=== PATIENT | female | born 1935 | race Caucasian/White ===

== ENCOUNTER 2016-11-24 10:30 | Day surgery (SDC) | payer MEDICARE ==
[~2016-11-24] VITALS: Ht 167.6 cm; Wt 65.0 kg
[~2016-11-24 10:30] MED LIST: 0.9% Sodium Chloride 1,000 ML IV PRN; Sodium Chloride LOK Flush 10 mL Syringe IV PRN; fentaNYL-PF 50 mCg/mL 2 mL Inj IVPUSH PRN
[2016-11-24 11:24] VITALS: BP 139/73; PULSE 73; RESP 16; O2SAT 97
[2016-11-24] MEDS ORDERED: GABA-500 PO (11:26)
[2016-11-24] MEDS ORDERED: SIMV10TA4 PO (11:26)
[2016-11-24] MEDS ORDERED: ATEN50TA PO (11:26)
[2016-11-24] MEDS ORDERED: ASPI-973 PO (11:26)
--- NOTE | 2016-11-24 12:29 | PCM.ENDEGD ---
EGD Date of Service: Nov 24, 2016 Physician Al Rain MD Pre Procedure Diagnosis: Reflux Post Procedure Dx & Findings: Diffuse gastritis bilaterally the stomach benign-appearing duodenal narrowing Procedure Esophagogastroduodenoscopy PROCEDURE IN DETAIL: After proper sedation, Olympus video endoscope was inserted into patient's mouth and esophagus was successfully intubated. Scope introduced esophagus. Esophagus showed normal shiny whitish mucosa consistent with squamous cell component. Z line was intact at 39 cm from the incisors. Scope further advanced to the stomach. Stomach showed atrophy redness erosions and bilious material consistent with chemical gastritis. Several biopsies obtained. Cardia fundus body antrum pylorus were all visualized. Retroflexion was done. Stomach was easily inflated and deflatable using air. Scope further events to the proximal duodenum. There was a benign appearing stricture with ulceration between the first and the second pass of the duodenum. Scope did not easily popped in. I did not try to push the scope and due to the ulcer. Biopsy obtained. Impression Chemical gastropathy status post biopsy Benign appearing duodenal narrowing with small ulcer between first and second pass. Biopsies obtained. Recommendation Prilosec 20 mg twice a day Avoid NSAIDs Calculate the risks and benefits for continuing the baby aspirin for cardiac stroke protection. Follow up in GI clinic Soft diet and low residual diet Presedation Assessment Risks and Benefits Informed consent was obtained from the patient after all risks and benefits including but not limited to drug reaction, infection, pain, bleeding, perforation, as well as alternatives were discussed. Patient monitoring Continuous pulse oximetry, cardiac monitoring, blood pressure monitoring, IV access, and oxygen at 2L per nasal cannula. Periprocedural Fentanyl: Fentanyl 75mcg Incrementally Midazolam: Midazolam 3mg Incrementally Complications There were no periprocedural complications identified. Post Procedure Plan Post Procedure Recommendations 1. Restrict activities today. 2. Resume normal activities in the morning. 3. Resume medications. 4. GERD behavioral modification: - Avoid fatty, acidic, spicy, large meals - Do not lie down after meals - Do not eat or drink anything for at least 2 1/2 hours before going to bed at night - Discontinue tobacco and alcohol - Decrease or avoid caffeine - Avoid chocolate and mints - Decrease weight - Avoid aspirin and non steroidal anti-inflammatory agents (NSAID) such as Aleve, Advil, Mobic, Naproxen, Ibuprofen, etc 5. Add proton pump inhibitor. Take 30 minutes before 1st meal of the day. 6. Patient informed of normal post procedure side effects as bloating, drowsiness, blood streaking in the stool 7. If gastric biopsy reveal H.pylori, continue with appropriate treatment 8. If small bowel biopsy reveals celiac, continue with appropriate treatment 9. Please don't hesitate to call me with any questions Al Rain MD Nov 24, 2016 12:29
--- NOTE | 2016-11-24 13:14 | PCM.ENDCOL ---
Colonoscopy Date of Service: Nov 24, 2016 Physician Al Rain MD Pre Procedure Diagnosis: Personal history of colon polyps Post Procedure Dx & Findings: Polyp hemorrhoids diverticuli Procedure Colonoscopy Prep adequate Withdrawal time 20 minutes After unremarkable rectal examination the Olympus video colonoscope was inserted patient's anal canal and was advanced to cecum. Landmarks were identified including the ileocecal valve and appendiceal orifice. Scope was withdrawn systematically. Visualized colonic mucosa showed healthy shiny mucosa with normal healthy-appearing vasculature. She had a very redundant colon. Once in the cecum, she bears down and the scope pops right out. Then we went back and there again and on the second time, we were able to clean the cecum. When we tried to locate the polyp she again bear down and the scope popped out. This time she had a vasovagal episode. Because of this, we did not attempt to reintubate the cecum. In the cecum, there were two 1 mm polyps next to each other. In the sigmoid colon a few diverticuli. In the rectum retroflexion was done which showed hemorrhoids. Anal canal was inspected carefully on the way out and hemorrhoids noted. Impression Polyps 2 in the cecum unable to really removed Diverticuli Hemorrhoids Recommendation Follow up in GI clinic in 1 month. Presedation Assessment Risks and Benefits Informed consent was obtained from the patient after all risks and benefits including but not limited to drug reaction, infection, pain, bleeding, perforation, as well as alternatives were discussed. Patient monitoring Continuous pulse oximetry, cardiac monitoring, blood pressure monitoring, IV access, and oxygen at 2L per nasal cannula. Periprocedural Fentanyl: Fentanyl 50mcg Incrementally Midazolam: Midazolam 3mg Incrementally Complications There were no periprocedural complications identified. Post Procedure Plan Post Procedure Recommendations 1. Restrict activities today. 2. Resume normal activities in the morning. 3. Resume medications. 4. Patient informed of normal post procedure side effects as bloating, drowsiness, blood streaking in the stool. 5. average risk CRCS. If colon polyps come back as: -Hyperplastic- can repeat colonoscopy in 10 years -Tubular adenoma- repeat colonoscopy in 5 years -Tubulovillous/villous adenoma- repeat colonoscopy in 3 years -If any dysplasia- return to clinic as soon as possible 6. Please don't hesitate to call me with any questions. Al Rain MD Nov 24, 2016 13:14
[2016-11-24 13:18] VITALS: BP 127/69; PULSE 64; RESP 16; O2SAT 96
[2016-11-24 13:37] VITALS: BP 130/59; PULSE 60; RESP 16; O2SAT 97
[2016-11-24 13:46] VITALS: BP 139/68; PULSE 57; RESP 16; O2SAT 97
--- NOTE | 2016-11-25 14:53 | PATH ---
SURGICAL PATHOLOGY Attending Physician:Al Rain M.D. CASE STATUS: Signed Out PATIENT NAME: GABY TUTTLE PID: [id number] : 1935 DATE COLLECTED:11/24/2016 22:15 SPECIMEN: 1: Duodenum, Biopsy 2: Gastric, Biopsy CLINICAL HISTORY: GERD,PHX COLON POLYPS 1). DUODENUM ULCER BIOPSY 2). GASTRIC BIOPSY FINAL DIAGNOSIS: 1. Duodenum Ulcer Biopsy: Fragments of duodenum mucosa with acute and chronic inflammation, mucosal erosion and prominent reactive epithelial changes. Negative for dysplasia and malignancy. 2. Gastric Biopsy: Diffuse mild to moderate chronic gastritis involving antral mucosa. Immunohistochemistry for Helicobacter pending to be recorded by addendum. Negative for intestinal metaplasia. Negative for dysplasia and malignancy. ICD10 K29.70 GROSS DESCRIPTION: The specimen is received in two formalin filled containers labeled with the patient's name. 1). The specimen is sublabeled "duodenum ulcer" and consists of a 0.3 x 0.2 x 0.2 CM portion of tissue which is entirely submitted in cassette 1A. 2). The specimen is sublabeled "gastric" and consists of a 0.3 x 0.2 x 0.2 CM portion of tissue which is entirely submitted in cassette 2A. 11/24/2016 [facility] ICD-9 CODES: CPT CODES: 1: 77539 2: 47334, 38039 PROCEDURE/ADDENDA: Immunohistochemistry SPI Interpretation {Not Entered} Results-Comments Immunohistochemistry Results: 2.GASTRIC BIOPSY: NEGATIVE FOR HELICOBACTER PYLORI BY IMMUNOHISTOCHEMISTRY. This test was developed and its performance characteristics determined by [facility]. It has not been cleared or approved by the U. S. Food and Drug Administration. The FDA has determined that such clearance or approval is not necessary. This test is used for clinical purposes. It should not be regarded as investigational or for research. Electronically Signed Out Raphael Plasencia MD Electronically Signed Out Raphael Plasencia MD [facility] Pathology [facility] [address], [place] [address] Technical component performed at [facility], [facility] [address], [place], [address]
== END 2016-11-24 23:59 | disposition home or self-care (01) ==
LOC: END 10:30
PROVIDERS: ATTEND Internal Medicine
DX: Z12.11 Encounter for screening for malignant neoplasm of colon (principal); K63.5 Polyp of colon; K57.30 Diverticulosis of large intestine without perforation or abscess without bleeding; K64.8 Other hemorrhoids; K21.9 Gastro-esophageal reflux disease without esophagitis; K29.50 Unspecified chronic gastritis without bleeding; Z86.010 Personal history of colon polyps; K26.9 Duodenal ulcer, unspecified as acute or chronic, without hemorrhage or perforation; Z79.82 Long term (current) use of aspirin; Z79.899 Other long term (current) drug therapy

== ENCOUNTER 2017-01-27 13:34 | Observation (INO) | payer MEDICARE ==
[~2017-01-27] VITALS: Ht 167.6 cm; Wt 66.1 kg
[~2017-01-27 13:34] MED LIST changes: -0.9% Sodium Chloride 1,000 ML IV PRN; +ASPI-973 PO; +ATEN50TA PO; +GABA-500 PO; +SIMV10TA4 PO; -Sodium Chloride LOK Flush 10 mL Syringe IV PRN; -fentaNYL-PF 50 mCg/mL 2 mL Inj IVPUSH PRN
[2017-01-27 14:06] VITALS: BP 170/79; PULSE 60; RESP 14; O2SAT 97
[2017-01-27] MEDS ORDERED: LORazepam 0.5 mg Tablet PO ONE (14:10)
[2017-01-27] MEDS ORDERED: Ondansetron 8 mg ODT Tablet PO ONE (14:10)
[2017-01-27 14:15] VITALS: BP 144/80; PULSE 54; RESP 18; O2SAT 97
[2017-01-27 14:54] LABS: BASOPHILS % (AUTO) 0.6 % (0-3); EOSINOPHILS % (AUTO) 3.2 % (0-5); MONOCYTES % (AUTO) 7.8 % (4-12); Mean Corpuscular Hemoglobin 29.5 pg (27.0-35.0); Mean Corpuscular Volume 88.2 fL (81-100); NEUTROPHILS % (AUTO) 38.2 % (40-74); Platelet Count 256 bil/L (150-400)
--- NOTE | 2017-01-27 14:58 | ED.REPORT ---
HPI-Dizziness / Weakness Date of Service January 27, 2017 ED Provider: Kashif Randall PA-C Lynnette is a 81-year-old female with a chief complaint of dizziness. Patient reports a history of dizziness over the last 6 months, for which she was prescribed meclizine 2 months ago. Remote history of Mnire's diagnosis. Patient reports an episode of dizziness while sitting in her chair this morning. She took a dose of meclizine, but became nauseous and vomited. She reports this episode was similar to previous episodes, but more severe. She is accompanied by her daughter, who reports she sounds "thick tongued" and more confused than yesterday. Denies symptoms of chest pain, jaw pain, arm pain, sweating, syncope, presyncope, fall, shortness of breath, cough, wheeze. Denies history of CVA, TIA, [place], CAD. Reports recent history of urinary tract infection, treated with amoxicillin which has resolved. Currently being assessed for chronic abdominal pain by Dr. Rain. Nursing Notes Stated Complaint: DIZZINESS Chief Complaint: General Complaint Nursing Notes Reviewed: Yes Allergies: Coded Allergies: No Known Allergies (Verified , 11/24/16) Scheduled Aspirin (Aspirin) 81 Mg Tablet 81 MG PO DAILY Atenolol (Atenolol) 50 Mg Tablet 50 MG PO BID Fluoxetine (Fluoxetine) 10 Mg Capsule 10 MG PO HS Gabapentin (Gabapentin) 100 Mg Capsule 100 MG PO HS Lansoprazole (Lansoprazole) 30 Mg Capsule.dr 30 MG PO BID Simvastatin (Simvastatin) 10 Mg Tablet 10 MG PO DAILYWD Scheduled PRN Meclizine (Bonine) 25 Mg Tab.chew 25 MG PO TID PRN PRN For Dizziness General Time Seen by MD: 14:12 Chief Complaint Dizzy Past Medical History Past Medical History Notes: Echocardiogram November 2011: EF of 55-60%, mild to moderate mitral regurg, mild sclerosis of the aortic valve Past Medical History History depression The contradictory reports only history of coronary disease-1 states that some component of coronary disease was identified in 1991, but the preoperative studies November 2006 indicate no significant underlying coronary disease with a reassuringly normal nuclear medicine stress test at that time. Hypertension History of celiac artery disease Polymyalgia rheumatica Fibromyalgia GERD hyperlipidemia Frederick's esophagus Past Surgical History Celiac artery surgery in 1978 Billroth II vagotomy in 2004 Oophorectimy Appendectomy Coccyx surgery Bladder prolapse Reports: Cholecystectomy Smoking History Unknown if Ever Smoker Ambulatory Status Independent Review of Systems General: Denies fever, chills, malaise. HEENT: Denies congestion, headache, sore throat. Respiratory: Denies dyspnea, cough, shortness of breath, wheezing. Cardiovascular: Denies chest pain, palpitations. Gastrointestinal: Admits vomiting. Denies diarrhea, abdominal pain, melena, hematochezia Genitourinary: Denies frequency, urgency, dysuria, hematuria. Otherwise as noted in HPI. Physical Exam General: Well appearing, well developed, well nourished, no acute distress. Head: Atraumatic, normocephalic. No mastoid tenderness. Eyes: No scleral icterus or injection. No discharge. PERRL. Vision grossly intact. Ears: Pinna and tragus nontender with manipulation. External auditory canal patent, atraumatic and without discharge. Right Tympanic membrane awad, shiny and translucent without fluid, bulging, retraction or perforation. Left tympanic membrane sclerotic without bulging or retraction. Hearing grossly intact but impaired, left hearing aid in place. Nose: Symmetrical, nares patent without discharge. No frontal or maxillary sinus tenderness. Mouth/pharynx: normal dentition, mucus membranes moist. Tonsils 2+ and symmetrical, uvula midline. Pharynx noninjected, no cobblestoning or discharge. Voice clear. Neck: No tenderness or lymphadenopathy. Trachea midline. Respiratory: Regular rate and rhythm. Breath sounds present, clear to auscultation and equal bilaterally. No respiratory distress. No increased work of breathing, speaks in complete sentences. Cardiovascular: Regular rate and rhythm, without murmur, gallop or rub. No pedal edema. Gastrointestinal: Abdomen flat and non-tender without guarding or rebound. Bowel sounds normoactive. Skin: Warm and dry. Neurological: Negative pronator drift, normal finger-nose, heel-noel, rapid hand. Cranial nerves: Vision grossly intact, PERRL, EOMI. Forehead wrinkles symmetrically with eyebrow raise, slightly reduced smile on right. sensation to light touch over forehead, maxilla and mandible present and equal B/L. Voice slightly slurred, no drooling/pooling of saliva, uvula rises midline. Psychological: Alert and oriented. Speech appropriate, linear and logical. Behavior appropriate. Initial Vital Signs Vital Signs (First) Date Time Temp Pulse Resp B/P Pulse Ox O2 Delivery O2 Flow Rate FiO2 01/27/17 14:06 36.6 60 14 170/79 97 Room Air Initial VS: Vital signs abnormal (elevated blood pressure) Interpretation & Diagnostics Lab Results Interpretation Result Diagram: 01/27/17 1346 01/27/17 1346 Test 01/27/17 13:46 White Blood Count 8.1th/mm3 (3.8-10.1) Red Blood Count 4.58mil/mm3 (3.90-5.20) Hemoglobin 13.5g/dL (12.0-15.6) Hematocrit 40.4% (35.0-46.0) Mean Corpuscular Volume 88.2fL (81-100) Mean Corpuscular Hemoglobin 29.5pg (27.0-35.0) Mean Corpuscular Hemoglobin Concent 33.4% (32.0-37.0) Red Cell Distribution Width 12.9% (12.3-15.4) Platelet Count 256bil/L (150-400) Neutrophils (%) (Auto) 38.2% (40-74) Lymphocytes (%) (Auto) 50.1% (14-46) Monocytes (%) (Auto) 7.8% (4-12) Eosinophils (%) (Auto) 3.2% (0-5) Basophils (%) (Auto) 0.6% (0-3) Hold Purple Top Tube Received (Received) Hold Blue Top Tube Received (Received) Sodium Level 140mEq/L (134-144) Potassium Level 4.1mEq/L (3.5-5.2) Chloride Level 102mEq/L (97-108) Carbon Dioxide Level 20mmol/L (18-29) Blood Urea Nitrogen 17mg/dL (8-27) Creatinine 0.96mg/dL (0.57-1.00) Estimat Glomerular Filtration Rate 80mL/min (>59) Glucose Level 104mg/dL (60-99) Calcium Level 9.7mg/dL (8.5-10.1) Total Bilirubin 0.5mg/dL (0.0-1.2) Aspartate Amino Transf (AST/SGOT) 21U/L (0-50) Alanine Aminotransferase (ALT/SGPT) 9U/L (0-32) Alkaline Phosphatase 75U/L (25-165) Troponin T < 0.010ug/L (0.0-0.011) Total Protein 7.1g/dL (6.4-8.4) Albumin 3.9g/dL (3.4-5.0) Hold [place] Top Tube Received (Received) ECG Interpretation ECG Interpretation: Regular Sinus rhythm, rate of 54. T-wave inversion in V1 and flattening in V2. Unchanged from previous study, negative ST elevation. Time: 15:02 Interpreted by: ED physician CT Head Interpretation PROCEDURE: CT BRAIN WITHOUT CONTRAST ([id number]) INDICATIONS: dysarthria IMPRESSION: 1. No acute intracranial hemorrhage. 2. Parenchymal volume loss and chronic small vessel ischemic changes of the brain. Interpretation / Wet Read by: Interpret - Radiologist, Interp - P Re-Eval/Medical Decision Med Decision/Clinical Course 81-year-old female with a history of Mnire's disease and intermittent dizziness over the last several weeks presents with a chief complaint of dizziness. She had an especially bad episode this morning associated with nausea and vomiting. Took 25 mg meclizine to little effect. He did with her daughter who states that the patient sounds "thick tongued." Last noted to be normal yesterday. Denies history of heart disease, CVA. Physical examination reveals some right sided facial droop as well as mild dysarthria. CT is reassuring, EKG, CBC, CMP and troponin are normal. Discussed this case with Dr. So, who met with and examined the patient. She is not thought to be a candidate for thrombolytics due to unknown duration of symptoms. Seek admission for CVA workup, hospitalist excepts. Patient Discharge & Departure Impression: Primary Impression: Suspected cerebrovascular accident (CVA) Disposition: ADMITTED TO HOSPITAL Referrals: Emmanuel Duarte DO (PCP) EDSupervising Provider for APC: True So MD Attending Statement Discussed patient with DHEERAJ Randall. Asked to evaluate patient and evaluated patient independently and agree with plan as above. In brief, 81-year-old female presenting with right facial droop and dysarthria 1 day. Last normal yesterday. NIHSS scale is 2 for mild dysarthria and right facial droop. CT scan normal. No TPA candidate given last normal 24 hours ago. Patient will be admitted for CVA workup. Given aspirin. Kashif Randall PA-C January 27, 2017 14:57 True So MD January 27, 2017 22:27
[2017-01-27 15:15] VITALS: BP 153/68; PULSE 53; RESP 17; O2SAT 97
[2017-01-27 15:21] LABS: TROPONIN T < 0.010 ug/L (0.0-0.011)
--- NOTE | 2017-01-27 16:03 | DRSVH ---
PROCEDURE: CT BRAIN WITHOUT CONTRAST ([id number]) INDICATIONS: dysarthria TECHNIQUE: Noncontrast 4.5 mm thick angled axial sections acquired from the foramen magnum to the vertex, with c oronal reformats. COMPARISON: [facility], MR, MR BRAIN WO CON, 07/16/2015, 15:17. FINDINGS: Image quality: Diagnostic. Brain: There is no acute intra-axial or extra-axial hemorrhage. No extra-axial fluid collection is i dentified. There is no midline shift or mass effect. The orbits are grossly unremarkable. No large areas of diffusely decreased attenuation are evident within the brain to suggest diffuse cer ebral edema. Opinion confluent areas of low attenuation within the periventricular white matter of t he supratentorial brain is noted. The ventricles and cortical sulci are mildly prominent. Bones: Calvarium and visualized facial bones are grossly intact. Postoperative changes of the left mastoid air cells are noted. Otherwise, the imaged paranasal sinuses and mastoid air cells are clear . IMPRESSION: 1. No acute intracranial hemorrhage. 2. Parenchymal volume loss and chronic small vessel ischemic changes of the brain. Dictated by: Goran Lloyd M.D. on 01/27/2017 at 14:45 Approved by: Goran Lloyd M.D. on 01/27/2017 at 15:02
[2017-01-27] MEDS ORDERED: Alum-Mag Hydrox-Simeth 30 mL Suspension PO PRN (17:15)
[2017-01-27] MEDS ORDERED: Labetalol 5 mg/mL 4 mL Inj IVPUSH PRN (17:15)
[2017-01-27] MEDS ORDERED: Polyethylene Glycol (PEG) 17 Gm Powder PO PRN (17:15)
[2017-01-27] MEDS ORDERED: Ondansetron 2 mg/mL 2 mL Inj IVPUSH PRN (17:15)
[2017-01-27] MEDS ORDERED: FLUO10CA20 PO (17:20)
[2017-01-27] MEDS ORDERED: LANS30CA PO (17:20)
[2017-01-27] MEDS ORDERED: MECL-114 PO (17:21)
[2017-01-27 18:30] VITALS: BP 170/74; PULSE 51; RESP 20; O2SAT 99
--- NOTE | 2017-01-27 18:38 | NUR ---
Transfer Pt. was transferred from ED to room 238-1 MOC.Pt. arrived in no apparent distress, VS are as follows: BP 170/74, SpO2 99% RA, 51 pulse, 36.3 degrees C, RR 20. Pt. was taken immediately to MRI and voided 350mL before going. Urine was pale yellow color, no odor. Pt. denies any CP, SOB at this time. Pt. did state some soreness on her lower abdomen.
--- NOTE | 2017-01-27 18:59 | PCM.HPMED ---
Subjective Date of Service January 27, 2017 Primary Provider: Admitting Physician: Chase Pearson MD Primary Care Physician: Emmanuel Duarte DO Attending Physician: Chase Pearson MD Admit Status: From the Emergency Department, 23-Hour Observation Chief Complaint: Worsened episode of Vertigo/2hrs History of Present Illness: 81-year-old lady with past medical history of Mnire's disease, hypertension, polymyalgia rheumatica, fibromyalgia, gout, hyperlipidemia was brought in due to a worse episode of vertigo which happened 2 hours ago. She has history of meniere's disease and she gets vertigo few times a week for the last several months .She takes meclizine prn and controls her symptom. She had a more severe episode today in which it was more prolonged ,severe in intensity and did not respond to meclizine as usual which prompted ED visit. Episode started at rest suddenly while sitting in chair. Episode resolved prior to arrival to ED. Daughter also noted her speech was slightly changed,she described it as more thickened maximilian.daughter states her speech is at her baseline at time of my interview .no motor weakness. ED physician noted very subtle R facial palsy but daughter thinks her face is at baseline . ED course : sinus maryellen,BP high SBP in 160's,initial NIHSS 0 ,speech and facial exam too subtle to be scored . admission requested for TIA workup Review of Systems: A comprehensive review of systems performed, pertinent positives and negatives included in history of present illness Allergies Coded Allergies: No Known Allergies (Verified , 11/24/16) Home Medications Aspirin (Aspirin) 81 Mg Tablet 81 MG PO DAILY Atenolol (Atenolol) 50 Mg Tablet 50 MG PO BID Gabapentin (Gabapentin) 100 Mg Capsule 100 MG PO DAILY Simvastatin (Simvastatin) 10 Mg Tablet 10 MG PO HS PMH Hypertension History of celiac artery disease Polymyalgia rheumatica Fibromyalgia GERD hyperlipidemia Frederick's esophagus Surgical History per chart,patient unsure of details Celiac artery surgery in 1978 Billroth II vagotomy in 2004 Oophorectimy Appendectomy Coccyx surgery Bladder prolapse Cholecystectomy Family History reviewed and unremarkable Social History Hx Alcohol Use: No Hx Substance Use: No Smoking Status: Unknown if Ever Smoker Exam Vital Signs Vital Sign - Last Date Time Temp Pulse Resp B/P Pulse Ox O2 Delivery O2 Flow Rate FiO2 01/27/17 18:30 36.3 51 20 170/74 99 Room Air Exam Gen. patient is lying comfortably in hospital bed HEENT: Head is normocephalic atraumatic, Pupils equal and reactive, extraocular movements intact, Lungs clear to auscultation bilaterally Heart regular rate and rhythm without murmurs gallops or rubs Abdomen soft nontender without hepatosplenomegaly Extremities pulses are present dorsalis pedis posterior tibialis and radial. Skin is warm and dry there are no rashes, Psych alert and oriented to person place and time Neuro cranial nerves II through XII are grossly intact,no motor deficit,face symmetrical Lymph: There is no lymphadenopathy appreciated in the cervical supra infraclavicular regions : no dinero Lab and Diagnostics Result Diagram: 01/27/17 1346 01/27/17 1346 X-Rays, CTs and MRIs PROCEDURE: MRI STROKE PROTOCOL ([id number]) Pre- and post-contrast brain MRI, non-contrast brain MR angiogram, pre- and postcontrast neck MR angiogram INDICATIONS: Vertigo TECHNIQUE: Brain: Noncontrast axial T1 spin echo, axial T2 fast spin echo, sagittal and axial FLAIR, coronal T2 fast spin echo, axial gradient echo, axial diffusion and ADC through the brain. After the administration of contrast, axial 3D VIBE of the cranial vasculature and brain. Brain MRA: Non-contrast 3-D time of flight MR angiogram, with multiple maximum- intensity-projection (MIP) reformats performed. Neck MRA: Axial and sagittal TruFISP through the neck. Coronal dynamic MR angiogram during administration of contrast in the arterial and venous phases, with 3-dimenstional oooumir-nlojcoobg-sqwzpnlswt (MIP) reformats constructed from subtraction images. COMPARISON: None. FINDINGS: Image quality: Excellent. BRAIN: CSF spaces: Ventricles are normal in size and shape. Basal cisterns are patent. No extra-axial fluid collections. Brain: No intracranial bleeds or mass effects. Lovell-white matter interface is normal. Diffusion weighted images show no acute ischemic insults. Brainstem appears normal. Normal intravascular flow voids are present. No abnormal intracranial enhancement. Skull and face: Calvarial marrow signal is normal. Orbits appear normal. Sinuses: Sinuses and mastoids are clear. BRAIN MR ANGIOGRAM: Anterior circulation: Intracranial internal carotid arteries are normal in size and enhancement. The flow within the paired anterior cerebral arteries is normal and symmetric. The flow within the middle cerebral arteries is normal and symmetric. The anterior communicating artery is seen. No stenoses, occlusions, or aneurysms. Posterior circulation: The visualized portions of the vertebral arteries demonstrate normal caliber, and join to form a normal appearing basilar artery. The flow within the posterior cerebral arteries is normal and symmetric. No stenoses, occlusions, or aneurysms. NECK MR ANGIOGRAM: Carotids: Great vessels demonstrate a conventional anatomy as they arise from the aortic arch. The origins of the common carotid arteries appear patent. The calibers and courses of both common carotid arteries are normal. The bifurcation regions appear normal bilaterally. The internal carotid arteries demonstrate normal course and caliber. Posterior circulation: The origins of the vertebral arteries appear patent. More superior portions of both vertebral arteries demonstrate normal course and caliber, and join to form a normal appearing basilar artery. Miscellaneous: Subclavian arteries appear patent. Pre-contrast images through the neck show no soft tissue abnormalities. IMPRESSION: BRAIN MRI: 1. No acute intracranial abnormalities. 2. Cerebral volume loss and chronic microvascular ischemic changes. BRAIN MR ANGIOGRAM: Normal anterior and posterior circulations. NECK MR ANGIOGRAM: No significant stenosis in carotid arteries or vertebral arteries. The estimate of stenosis included in the report of the imaging study was calculated using the NASCET method Dictated by: Juventino Simms M.D. on 01/27/2017 at 20:04 Assessment & Plan 81-year-old lady with past medical history of Mnire's disease, hypertension, polymyalgia rheumatica, fibromyalgia, gout, hyperlipidemia was brought in due to a worse episode of vertigo which happened 2 hours ago. # worse and unusual episode of vertigo -could be due to known Meniere's disease vs TIA -TIA workup with MRI,MRA,echo,lipid panel,A1c -continue home meclizine prn meanwhile -PT,OT eval -c/w ASA and statin # sinus bradycardia -can also be contributing to symptoms -will stop atenolol and discharge off BB -telemetry -TSH in am # HTN -c/w home meds ,no need for permissive HTN as CVA unlikely Observation status Full code for now per patient and daughter possible discharge tomorrow after workup Resuscitation Status: CPR: Attempt Resuscitation copies to: Emmanuel Duarte Melaku MD January 27, 2017 18:59
--- NOTE | 2017-01-27 19:18 | NUR ---
Pt off Floor Prior to this NOC nurse's arrival, pt taken off floor to MRI at approx 1820.
--- NOTE | 2017-01-27 20:06 | NUR ---
Residual Bladder Scan Bladder scan performed #1 after voiding 200ml - 65ml residual will repeat with next void per protocol. Addendum: 01/27/17 at 2007 by LORETA CARRILLO RN Amended: Links added.
--- NOTE | 2017-01-27 20:06 | DRSVH ---
PROCEDURE: MRI STROKE PROTOCOL ([id number]) Pre- and post-contrast brain MRI, non-contrast brain MR angiogram, pre- and postcontrast neck MR jessica ogram INDICATIONS: Vertigo TECHNIQUE: Brain: Noncontrast axial T1 spin echo, axial T2 fast spin echo, sagittal and axial FLAIR, coronal T2 fast spin echo, axial gradient echo, axial diffusion and ADC through the brain. After the administr ation of contrast, axial 3D VIBE of the cranial vasculature and brain. Brain MRA: Non-contrast 3-D time of flight MR angiogram, with multiple vfmwqgp-fowmcwoyp-pdcfnmxvtf (MIP) reformats performed. Neck MRA: Axial and sagittal TruFISP through the neck. Coronal dynamic MR angiogram during administ ration of contrast in the arterial and venous phases, with 3-dimenstional vovqatk-jyxaqvczz-vspcdcrwf n (MIP) reformats constructed from subtraction images. COMPARISON: [facility], MR, BRAIN W&W/O CONTRAST, 04/26/2007, 14:31. [facility], , ANGIO HEAD W/O CONTRAST, 04/26/2007, 14:31. [facility], MR, MR BRAIN WO CON, 07/16/2015, 15:17. FINDINGS: Image quality: Excellent. BRAIN: CSF spaces: Ventricles are normal in size and shape. Basal cisterns are patent. No extra-axial flu id collections. Brain: No intracranial bleeds or mass effects. Lovell-white matter interface is normal. There is mil d cerebral volume loss. Mild to moderate periventricular matter chronic small vessel ischemic changes are present. Diffusion weighted images show no acute ischemic insults. Brainstem appears normal. N ormal intravascular flow voids are present. No abnormal intracranial enhancement. Skull and face: Calvarial marrow signal is normal. Orbits appear normal. Sinuses: Sinuses and mastoids are clear. BRAIN MR ANGIOGRAM: Anterior circulation: Intracranial internal carotid arteries are normal in size and enhancement. Th e flow within the paired anterior cerebral arteries is normal and symmetric. The flow within the mid dle cerebral arteries is normal and symmetric. The anterior communicating artery is seen. No stenos es, occlusions, or aneurysms. Posterior circulation: The visualized portions of the vertebral arteries demonstrate normal caliber, and join to form a normal appearing basilar artery. The flow within the posterior cerebral arteries is normal and symmetric. No stenoses, occlusions, or aneurysms. NECK MR ANGIOGRAM: Carotids: Great vessels demonstrate a conventional anatomy as they arise from the aortic arch. The origins of the common carotid arteries appear patent. The calibers and courses of both common caroti d arteries are normal. The bifurcation regions appear normal bilaterally. The internal carotid mansoor yannick demonstrate normal course and caliber. Posterior circulation: The origins of the vertebral arteries appear patent. More superior portions of both vertebral arteries demonstrate normal course and caliber, and join to form a normal appearing basilar artery. Miscellaneous: Subclavian arteries appear patent. Pre-contrast images through the neck show no soft tissue abnormalities. IMPRESSION: BRAIN MRI: 1. No acute intracranial abnormalities. 2. Cerebral volume loss and chronic microvascular ischemic changes. BRAIN MR ANGIOGRAM: Normal anterior and posterior circulations. NECK MR ANGIOGRAM: No significant stenosis in carotid arteries or vertebral arteries. The estimate of stenosis included in the report of the imaging study was calculated using the NASCET method Dictated by: Juventino Simms M.D. on 01/27/2017 at 20:04 Transcribed by: ALICJA on 01/27/2017 at 20:06 Approved by: Juventino Simms M.D. on 01/28/2017 at 8:11
[2017-01-27 21:59] VITALS: BP 150/72; PULSE 53; RESP 14; O2SAT 97
[2017-01-27] MEDS: Pantoprazole 40 mg ER24 Tablet PO SCH (23:03)
[2017-01-28 05:07] VITALS: PULSE 52
--- NOTE | 2017-01-28 05:28 | NUR ---
Return to Floor 1924 Pt returned to floor from MRI approx. 1924. A&O, voided 200ml in BSC steady and no dizziness. Bladder scan 65ml residual. Will repeat with next void per protocol. Pt and daughter oriented to room, call light, etc.
[2017-01-28 05:40] VITALS: BP 133/63; PULSE 53; RESP 14; O2SAT 96
[2017-01-28 06:58] LABS: BASOPHILS % (AUTO) 0.6 % (0-3); EOSINOPHILS % (AUTO) 5.4 % (0-5); MONOCYTES % (AUTO) 8.5 % (4-12); Mean Corpuscular Hemoglobin 29.2 pg (27.0-35.0); Mean Corpuscular Volume 90.3 fL (81-100); NEUTROPHILS % (AUTO) 46.8 % (40-74); Platelet Count 219 bil/L (150-400)
[2017-01-28 08:00] VITALS: PULSE 57
[2017-01-28] MEDS: Pantoprazole 40 mg ER24 Tablet PO SCH ×2 (08:28→16:49)
[2017-01-28 08:36] VITALS: BP 167/68; PULSE 56; RESP 16; O2SAT 96
--- NOTE | 2017-01-28 09:42 | NUR ---
bladder scan Patient used BSc after breakfast. Out put 450cc. Bladder scan after using BSC/out put...PVR amount 79cc.
--- NOTE | 2017-01-28 09:45 | NUR ---
Social Work Note Initial assessment Lynnette Neil is a 81 yr old admitted for CVA. EMR reviewed: Pt has [facility] [employer]. Her PCP is Dr Duarte. Pt has LTC insurance, no VA benefits. DPOA paperwork on file. Readmit score is 3 - High. See attached CM initial assessment. CATTLE DIPPER met with pt - pt's daughter also in the room. Introduced D/C planning and explained SW role. Pt lives at home alone in [place]. She is independent at baseline - uses a cane when needed. She has a lot of family support - they help with meals, setting up medications. She wants to stay as independent at possible but states that she has insurance and funds to get more care when she needs it. No hx of Home Health services. Pt's daughter asked for information on [employer] - CATTLE DIPPER provided Senior Resource Guide. PT evaluation pending. CATTLE DIPPER will continue to follow. Assessment: Pt may benefit from Home Health PT - will wait for PT eval. Plan: Home alone with family support - family providing transportation. AIXA Keith Addendum: 01/28/17 at 0950 by JELENA ZAMAN SS Amended: Links added.
--- NOTE | 2017-01-28 11:10 | NUR ---
Case Management: Attempted to give M[employer] and Medicare Part D info at 10:30 am and 1105 am, pt having bedside test. Will try again later; requested pt's nurse call UR RN when test completed. BTLOS babb RN
--- NOTE | 2017-01-28 11:37 | NUR ---
Case Management: MAD[employer] and Medicare Part D given and explained to pt's dtr at bedside at 11:30 am per pt's request. Pt states does not have hearing aids and cannot hear well. No questions, signed original placed on chart, copies given to dtr. LOS Woods RN
[2017-01-28 11:59] VITALS: BP 127/67; PULSE 63; RESP 16; O2SAT 100
--- NOTE | 2017-01-28 13:15 | NUR ---
Evaluation completed. Please go to "Notes" then click on "Assessments and Notes" (bottom left corner of screen). Then select appropriate discipline tab on top of screen.
--- NOTE | 2017-01-28 14:04 | NUR ---
Mentation Patient is alert with mild confusion and base line dementia per report. Daughter at bed side. Notified Dr. Pearson bladder scan 79 cc and no new orders for further bladder scan. patient using bed side commode. Patient worked with PT and OT at bed side at this time. Dr. Pearson aware r/t bradycardia. Verbal orders received to cancel the orders for swallow evaluation and speech pathologist aware. per Tele SR77. Call light with in reach for safety. Denies pain or discomfort.Stable mood. Continue to monitor vital signs, safety, and pain.
--- NOTE | 2017-01-28 14:29 | NUR ---
Evaluation completed. Please go to "Notes" then click on "Assessments and Notes" (bottom left corner of screen). Then select appropriate discipline tab on top of screen.
--- NOTE | 2017-01-28 15:23 | DRSVH ---
[facility] [address] [place] [address] Echocardiogram Report Name: GABY TUTTLE EStudy Date: 01/28/2017 Height: 66 in Hospital Exam Location: [facility] Weight: 146 lb Gender: Female BSA: 1.7 m2 : 1935 Age: 81 yrs BP: 167/68 mmHg Reason For Study: CVA Ordering Physician: HOSPITALIST [facility] Performed By: Fco Terrazas Referring Physician: TESFAYE ASHLEY Interpretation Summary Left ventricular systolic function is normal without focal wall motion abnormalities. LVEF has not changed since prior study on 12/01/2011. The right ventricle is normal in size and function. The right ventricular systolic pressure is estimated at 25 mmHg assuming a right atrial pressure of 3 mm Hg. RVSP has decreased since prior study. The left atrium is mildly dilated. Right atrial size is normal. Injection of contrast documented no interatrial shunt. There is no Doppler evidence for an atrial septal defect. There is no significant valvular heart disease. MR has decreased since prior study. The aortic root is normal size. Procedure: A two-dimensional transthoracic echocardiogram with color flow and Doppler was performed. The study quality was technically adequate. Comparison is made with the echocardiogram of 12/01/2011. A saline contrast injection was performed to assess for cardiac shunting. The injection was performed through an intravenous line in the left arm. The study quality was technically good. There is no prior echocardiogram noted for this patient. The patient was in normal sinus rhythm during the exam. Left Ventricle: The left ventricle is normal in size. Left ventricular wall thickness is at the upper limits of normal. Left ventricular systolic function is normal without focal wall motion abnormalities. The ejection fraction is estimated to be 55-60%. Assessment of diastolic parameters indicates normal left ventricular diastolic function and normal filling pressures. Right Ventricle: The right ventricle is normal in size and function. Atria: The left atrium is mildly dilated. Right atrial size is normal. The interatrial septum is intact with no evidence for an atrial septal defect. Injection of contrast documented no interatrial shunt. There is no Doppler evidence for an atrial septal defect. Mitral Valve: The mitral valve is normal in structure and function. There is trace mitral regurgitation. Aortic Valve: The aortic valve is trileaflet. There is mild aortic valve sclerosis. Leaflet mobility is minimally reduced. There is trace aortic regurgitation. Tricuspid Valve: The tricuspid valve leaflets are thin and pliable. There is mild tricuspid regurgitation. The right ventricular systolic pressure is estimated at 25 mmHg assuming a right atrial pressure of 3 mm Hg. Pulmonic Valve: The pulmonic valve is normal in structure and function. There is trace pulmonic regurgitation. There is no significant valvular heart disease. Great Vessels: The aortic root is normal size. The dimensions of the ascending aorta are normal. The pulmonary artery is normal size. The IVC is of normal diameter and collapses greater than 50% with a sniff. This suggests a low right atrial pressure of 3 mm Hg. Pericardium/ Pleura There is no pericardial effusion. There is no pleural effusion. MMode/2D Measurements & Calculations LVIDd: 4.3 cm LA dimension: 3.2 cm RA long axis LVOT diam: 2.0 cm LVIDs: 3.0 cm AoV Opening FS: 31.9 % LA A2 area: 17.8 cm RA area EPSS: 0.72 cm LA A4 area: 19.8 cm Ao root diam IVSd: 0.95 cm LA length (vol) : 15.4 cm LVPWd: 0.91 cm RA vol Aortic Jxn: 2.8 cm LA vol: 58.7 ml : 40.3 ml asc Aorta Diam LA vol index RA : 23.0 mm2 Ao Arch Diam (Prox Trans): 2.6 cm IVC diam: 1.5 cm LV rolon. diameter/BSA LV sys. diameter/BSA RVD1 (basal) RVD2 (mid): 2.8 cm (cm/m^2): 2.5 (cm/m^2): 1.7 TAPSE: 2.8 cm Doppler Measurements & Calculations Ao V2 max MV E max herb MV E/A: 1.1 TR max herb : 153.2 cm/sec : 79.1 cm/sec Med Peak E' Herb : 234.6 cm/sec Ao max PG MV A max herb TR max PG : 9.4 mmHg : 73.3 cm/sec E/E' med: 12.8 : 22.1 mmHg Ao mean PG MV P1/2t: 55.6 msec Lat Peak E' Herb PA V2 max : 80.4 cm/sec LVOT Max Herb E/E' lat: 11.4 PA mean PG : 94.0 cm/sec E/e' average: 12.1 Pulm A Revs Dur PA Accel Time JODEE(I,D): 2.0 cm : 0.14 sec sev ratio MV A dur: 0.12 sec AI P1/2t : 743.1 msec AI dec slope : 133.4 cm/s2c MV dec time MV P1/2t max herb Ao V2 mean LV V1 max PG : 0.19 sec : 104.9 cm/sec MVA(P1/2t): 4.0 cm2 Ao V2 VTI: 36.2 cm LV V1 VTI JODEE(V,D): 2.0 cm2 : 22.7 cm PA V2 mean JODEE indexed to BSA Pulm A Revs Dur - MV : 59.7 cm/sec (cm^2/m^2): 1.1 A Dur: 0.03 msec PA pr(Accel) : 17.3 mmHg Reading Physician:DENISE
[2017-01-28 16:37] VITALS: BP 147/71; PULSE 57; RESP 18; O2SAT 96
--- NOTE | 2017-01-28 16:39 | PCM.DIMED ---
Discharge Instructions Date of Service January 28, 2017 Dates of Hospitalization January 27, 2017 at 16:58 Discharge Diagnosis Discharge Diagnosis # worse and unusual episode of vertigo - due to known Meniere's disease ,stroke ruled out # sinus bradycardia due to atenolol # HTN Test Results MRI negative for stroke echocardiography unchanged Diet Low fat, Low Sodium, Heart Healthy Patient Instructions You were hospitalized due to vertigo ( dizzy spell ) .workup is negative stroke. Dizziness seems to be due to her known Meniers disease . Please continue meclizine as usual . Her hear rate is slow due to atenolol.this might be contributing to her symptoms . I have stopped you atenolol . Please follow up with PCP in 1 week . Follow-up Provider: Emmanuel Duarte DO Follow-up with PCP in: 1 week Chase Pearson MD January 28, 2017 16:39
--- NOTE | 2017-01-28 17:31 | NUR ---
Discharge Reviewed discharge paper work, discharge instructions, and written care notes with patient and daughter, understood and signed paper work. IV discontinued to left arm with out difficulty. patient ate dinner 75% before discharge. PT and OT worked with patient. Discharge diet reviewed with patient and family. patient left unit 1740 via wheel chair accompanied by nursing staff and daughter. Deneis pain or discomfort and vital signs stable.
--- NOTE | 2017-01-28 19:51 | PCM.DC.MED ---
Discharge Summary Date of Service January 28, 2017 Dates of Hospitalization Date of Hospital Admission January 27, 2017 at 16:58 Date of Discharge: January 28, 2017 Providers: Admitting Physician: Chase Pearson MD Primary Care Physician: Emmanuel Duarte DO Attending Physician: Chase Pearson MD Diagnosis at Time of Discharge Diagnosis at Time of Discharge # worse and unusual episode of vertigo - due to known Meniere's disease ,stroke ruled out # sinus bradycardia due to atenolol # HTN Procedures XRay, CTs & MRIs PROCEDURE: MRI STROKE PROTOCOL ([id number]) Pre- and post-contrast brain MRI, non-contrast brain MR angiogram, pre- and postcontrast neck MR angiogram INDICATIONS: Vertigo TECHNIQUE: Brain: Noncontrast axial T1 spin echo, axial T2 fast spin echo, sagittal and axial FLAIR, coronal T2 fast spin echo, axial gradient echo, axial diffusion and ADC through the brain. After the administration of contrast, axial 3D VIBE of the cranial vasculature and brain. Brain MRA: Non-contrast 3-D time of flight MR angiogram, with multiple maximum- intensity-projection (MIP) reformats performed. Neck MRA: Axial and sagittal TruFISP through the neck. Coronal dynamic MR angiogram during administration of contrast in the arterial and venous phases, with 3-dimenstional udalbvd-ihqnvwvux-ocjlwqiekd (MIP) reformats constructed from subtraction images. COMPARISON: None. FINDINGS: Image quality: Excellent. BRAIN: CSF spaces: Ventricles are normal in size and shape. Basal cisterns are patent. No extra-axial fluid collections. Brain: No intracranial bleeds or mass effects. Lovell-white matter interface is normal. Diffusion weighted images show no acute ischemic insults. Brainstem appears normal. Normal intravascular flow voids are present. No abnormal intracranial enhancement. Skull and face: Calvarial marrow signal is normal. Orbits appear normal. Sinuses: Sinuses and mastoids are clear. BRAIN MR ANGIOGRAM: Anterior circulation: Intracranial internal carotid arteries are normal in size and enhancement. The flow within the paired anterior cerebral arteries is normal and symmetric. The flow within the middle cerebral arteries is normal and symmetric. The anterior communicating artery is seen. No stenoses, occlusions, or aneurysms. Posterior circulation: The visualized portions of the vertebral arteries demonstrate normal caliber, and join to form a normal appearing basilar artery. The flow within the posterior cerebral arteries is normal and symmetric. No stenoses, occlusions, or aneurysms. NECK MR ANGIOGRAM: Carotids: Great vessels demonstrate a conventional anatomy as they arise from the aortic arch. The origins of the common carotid arteries appear patent. The calibers and courses of both common carotid arteries are normal. The bifurcation regions appear normal bilaterally. The internal carotid arteries demonstrate normal course and caliber. Posterior circulation: The origins of the vertebral arteries appear patent. More superior portions of both vertebral arteries demonstrate normal course and caliber, and join to form a normal appearing basilar artery. Miscellaneous: Subclavian arteries appear patent. Pre-contrast images through the neck show no soft tissue abnormalities. IMPRESSION: BRAIN MRI: 1. No acute intracranial abnormalities. 2. Cerebral volume loss and chronic microvascular ischemic changes. BRAIN MR ANGIOGRAM: Normal anterior and posterior circulations. NECK MR ANGIOGRAM: No significant stenosis in carotid arteries or vertebral arteries. The estimate of stenosis included in the report of the imaging study was calculated using the NASCET method Dictated by: Juventino Simms M.D. on 01/27/2017 at 20:04 Cardiac Echo Impression Interpretation Summary Left ventricular systolic function is normal without focal wall motion abnormalities. LVEF has not changed since prior study on 12/01/2011. The right ventricle is normal in size and function. The right ventricular systolic pressure is estimated at 25 mmHg assuming a right atrial pressure of 3 mm Hg. RVSP has decreased since prior study. The left atrium is mildly dilated. Right atrial size is normal. Injection of contrast documented no interatrial shunt. There is no Doppler evidence for an atrial septal defect. There is no significant valvular heart disease. MR has decreased since prior study. The aortic root is normal size. Brief History per HPI 81-year-old lady with past medical history of Mnire's disease, hypertension, polymyalgia rheumatica, fibromyalgia, gout, hyperlipidemia was brought in due to a worse episode of vertigo which happened 2 hours ago. She has history of meniere's disease and she gets vertigo few times a week for the last several months .She takes meclizine prn and controls her symptom. She had a more severe episode today in which it was more prolonged ,severe in intensity and did not respond to meclizine as usual which prompted ED visit. Episode started at rest suddenly while sitting in chair. Episode resolved prior to arrival to ED. Daughter also noted her speech was slightly changed,she described it as more thickened maximilian.daughter states her speech is at her baseline at time of my interview .no motor weakness. ED physician noted very subtle R facial palsy but daughter thinks her face is at baseline . ED course : sinus maryellen,BP high SBP in 160's,initial NIHSS 0 ,speech and facial exam too subtle to be scored . admission requested for TIA workup Hospital Course 81-year-old lady with past medical history of Mnire's disease, hypertension, polymyalgia rheumatica, fibromyalgia, gout, hyperlipidemia was brought in due to a worse episode of vertigo which happened 2 hours ago. # worse and unusual episode of vertigo - due to known Meniere's disease ,CVA ruled out.TIA possible but unlikely - MRI,MRA negative ,echo unremarkable -continue home meclizine prn -c/w ASA and statin # sinus bradycardia -can also be contributing to symptoms -will stop atenolol and discharge off BB -telemetry -TSH in am # HTN -SBP in 120's,no need for BP meds,advised to f/u with PCP for new BP meds if home BP is elevated -discontinued atenolol due to bradycardia as low as low 40's Observation status Full code for now per patient and daughter discharge home f/w with PCP Exam Vital Signs (Last) Date Time Temp Pulse Resp B/P Pulse Ox O2 Delivery O2 Flow Rate FiO2 01/28/17 16:37 36.5 57 18 147/71 96 Room Air Exam Gen. patient is lying comfortably in hospital bed HEENT: Head is normocephalic atraumatic, Pupils equal and reactive, extraocular movements intact, Lungs clear to auscultation bilaterally Heart regular rate and rhythm without murmurs gallops or rubs Abdomen soft nontender without hepatosplenomegaly Extremities pulses are present dorsalis pedis posterior tibialis and radial. Skin is warm and dry there are no rashes, Psych alert and oriented to person place and time Neuro cranial nerves II through XII are grossly intact,no motor deficit,face symmetrical Lymph: There is no lymphadenopathy appreciated in the cervical supra infraclavicular regions : no dinero Test 01/27/17 13:46 01/28/17 06:15 Hold Purple Top Tube Received (Received) Hold Blue Top Tube Received (Received) Troponin T < 0.010ug/L (0.0-0.011) Hold Cinebar Top Tube Received (Received) White Blood Count 5.0th/mm3 (3.8-10.1) Red Blood Count 4.11mil/mm3 (3.90-5.20) Hemoglobin 12.0g/dL (12.0-15.6) Hematocrit 37.1% (35.0-46.0) Mean Corpuscular Volume 90.3fL (81-100) Mean Corpuscular Hemoglobin 29.2pg (27.0-35.0) Mean Corpuscular Hemoglobin Concent 32.3% (32.0-37.0) Red Cell Distribution Width 12.9% (12.3-15.4) Platelet Count 219bil/L (150-400) Neutrophils (%) (Auto) 46.8% (40-74) Lymphocytes (%) (Auto) 38.5% (14-46) Monocytes (%) (Auto) 8.5% (4-12) Eosinophils (%) (Auto) 5.4% (0-5) Basophils (%) (Auto) 0.6% (0-3) Sodium Level 146mEq/L (134-144) Potassium Level 4.2mEq/L (3.5-5.2) Chloride Level 109mEq/L (97-108) Carbon Dioxide Level 27mmol/L (18-29) Blood Urea Nitrogen 15mg/dL (8-27) Creatinine 1.07mg/dL (0.57-1.00) Estimat Glomerular Filtration Rate 70mL/min (>59) Glucose Level 89mg/dL (60-99) Calcium Level 9.1mg/dL (8.5-10.1) Total Bilirubin 0.4mg/dL (0.0-1.2) Aspartate Amino Transf (AST/SGOT) 18U/L (0-50) Alanine Aminotransferase (ALT/SGPT) 7U/L (0-32) Alkaline Phosphatase 65U/L (25-165) Total Protein 5.7g/dL (6.4-8.4) Albumin 3.2g/dL (3.4-5.0) Triglycerides Level 86mg/dL (0-149) Cholesterol Level 138mg/dL (100-199) LDL Cholesterol, Calculated 72.800mg/dL (0-99) VLDL Cholesterol 17.200mg/dL HDL Cholesterol 48mg/dL (>39) Cholesterol/HDL Ratio 2.88 (0.0-4.4) Thyroid Stimulating Hormone (TSH) 2.170uIU/mL (0.450-4.500) Free Thyroxine 1.17ng/dL (0.82-1.77) Discharge Medications Discharge Medications Aspirin (Aspirin) 81 Mg Tablet 81 MG PO DAILY (Reported) Fluoxetine (Fluoxetine) 10 Mg Capsule 10 MG PO HS (Reported) Gabapentin (Gabapentin) 100 Mg Capsule 100 MG PO HS (Reported) Lansoprazole (Lansoprazole) 30 Mg Capsule.dr 30 MG PO BID (Reported) Simvastatin (Simvastatin) 10 Mg Tablet 10 MG PO DAILYWD (Reported) As needed Meclizine (Bonine) 25 Mg Tab.chew 25 MG PO TID PRN PRN For Dizziness (Reported) Followup Plan Disposition: home Discharge Diet: Low fat, Low Sodium, Heart Healthy Patient Instructions You were hospitalized due to vertigo ( dizzy spell ) .workup is negative stroke. Dizziness seems to be due to her known Meniers disease . Please continue meclizine as usual . Her hear rate is slow due to atenolol.this might be contributing to her symptoms . I have stopped you atenolol . Please follow up with PCP in 1 week . Follow-up Provider: Emmanuel Duarte DO Follow-up with PCP in: 1 week copies to: Emmanuel Duarte Melaku MD January 28, 2017 19:50
== END 2017-01-28 17:40 | disposition home or self-care (01) ==
LOC: SED 13:34 → EDUNIT# 13:34 → EDBD 13:34 → MOC 16:58 → INTOOBSV 16:58 → MOC 18:08
PROVIDERS: ADMIT Internal Medicine; ATTEND Internal Medicine
DX: R42 Dizziness and giddiness (principal); H81.09 Meniere's disease, unspecified ear; R00.1 Bradycardia, unspecified; I10 Essential (primary) hypertension; R29.810 Facial weakness; R47.1 Dysarthria and anarthria; R29.702 NIHSS score 2; E78.5 Hyperlipidemia, unspecified; I08.0 Rheumatic disorders of both mitral and aortic valves; K21.9 Gastro-esophageal reflux disease without esophagitis; K22.70 Barrett's esophagus without dysplasia; M35.3 Polymyalgia rheumatica; M79.7 Fibromyalgia; Z87.440 Personal history of urinary (tract) infections; Z79.82 Long term (current) use of aspirin
CPT/HCPCS: 36415; 70450; 70549; 70553; 80053; 80061; 83036; 84439; 84443; 84484; 85025; 93005; 97161; 97166; 99285; A9585; C8929; G0378; J1650